=== PATIENT | male | born 1945 | race Caucasian/White ===

== ENCOUNTER → 2018-09-05 | Outpatient (CLI) | payer MEDICARE, OTHER ==
[~2018-09-05] MED LIST: ASPI81CH PO; ATOR40TA PO; CHOL10002; CHOL10002 PO; CILO50; GLIP2.5ER PO; HYDCHL12.5 PO; MELO7.5; METF500 PO; METO25ER PO; MULVIT PO; NIFE30ER PO; Toprol Xl50 MG PO; VALS80 PO; [UNRECOGNIZED DRUG - OTHER]
== END | disposition home or self-care (01) ==
LOC: LAB SHORT 08:12 → PLD 08:12
DX: L72.8 Other follicular cysts of the skin and subcutaneous tissue (principal)
CPT/HCPCS: 88304

== ENCOUNTER 2019-12-27 05:52 | Day surgery (SDC) | payer MEDICARE, BC ==
[~2019-12-27] VITALS: Ht 180.3 cm; Wt 79.0 kg
[~2019-12-27 05:52] MED LIST changes: +FINA5 PO; +Isosorbide Mono30 MG PO
[2019-12-27] MEDS ORDERED: Norco 5-325 Ta1 EACH PO (06:35)
--- NOTE | 2019-12-27 10:12 | NUR ---
DISCHARGE PT REMAINED A&OX3 AND DENIED ANY PAIN DURING RECOVERY. R RADIAL SITE CDI-NO HEMATOMA NOTED-TR BAND REMOVED -CLOTH DOT PLACED AND WHITE BAORD IN PLACE. IV DC'D WTIH CANULA IN TACT. PT UP TO DRESS SELF AND AMBULATED WITH EASE. DISCHARGE PAPERWORK GONE OVER WITH PT. PT VERBALLY STATED THE UNDERSTANDING OF THE DISCHARGE EDUCATION AND DENIED ANY QUESTIONS AT THIS TIME. PT WHEELED OUT BY THIS NURSE.
== END 2019-12-27 10:24 | disposition home or self-care (01) ==
LOC: MHTC 05:52
PROC: B201YZZ Plain Radiography of Multiple Coronary Arteries using Other Contrast (ICD-10-PCS; principal; 2019-12-27)
PROC: 4A023N7 Measurement of Cardiac Sampling and Pressure, Left Heart, Percutaneous Approach (ICD-10-PCS; principal; 2019-12-27)
DX: I25.10 Atherosclerotic heart disease of native coronary artery without angina pectoris (principal); E78.5 Hyperlipidemia, unspecified; Z87.891 Personal history of nicotine dependence; Z88.5 Allergy status to narcotic agent; E11.51 Type 2 diabetes mellitus with diabetic peripheral angiopathy without gangrene; I35.0 Nonrheumatic aortic (valve) stenosis; I11.9 Hypertensive heart disease without heart failure; Z79.82 Long term (current) use of aspirin; Z79.899 Other long term (current) drug therapy; Z79.84 Long term (current) use of oral hypoglycemic drugs
CPT/HCPCS: 76937; 93458; 99152; 99153; C1769; C1894; J0360; J1644; J2250; J3010; J7030; Q9967

== ENCOUNTER 2021-07-14 08:55 | Day surgery (SDC) | payer MEDICARE, BC ==
[~2021-07-14] VITALS: Ht 180.3 cm; Wt 71.2 kg
[~2021-07-14 08:55] MED LIST changes: +ADALAT CC PO; +CARV25 PO; +JARDIANCE25 MG PO; +LOSA50 PO; +Mobic15 MG PO; -NIFE30ER PO; +Norco 5-325 Ta1 EACH PO; +PANT40 PO
--- NOTE | 2021-07-14 14:25 | NUR ---
Patient up to Ambulate independently. Gait steady. Discharge instructions reviewed with patient. Patient verbalizes understanding. Copy given to patient to take home, ALSO WENT OVER INSTRUCTIONS WITH PT'S . Patient States Post-Procedure ride home has been arranged. Discharged via wheelchair to private car for ride home.
== END 2021-07-14 14:25 | disposition home or self-care (01) ==
LOC: ORSCMMR 08:55 → ORD 10:15 → ORSCMMR 14:25
PROVIDERS: Surgery
PROC: 0YU50JZ Supplement Right Inguinal Region with Synthetic Substitute, Open Approach (ICD-10-PCS; principal; 2021-07-14 10:15)
DX: K40.90 Unilateral inguinal hernia, without obstruction or gangrene, not specified as recurrent (principal); I10 Essential (primary) hypertension; I25.10 Atherosclerotic heart disease of native coronary artery without angina pectoris; Z87.891 Personal history of nicotine dependence; K21.9 Gastro-esophageal reflux disease without esophagitis; E11.9 Type 2 diabetes mellitus without complications; Z79.84 Long term (current) use of oral hypoglycemic drugs; Z79.82 Long term (current) use of aspirin; Z79.899 Other long term (current) drug therapy
CPT/HCPCS: 82947; C1781; J0690; J1100; J1885; J2370; J2405; J2704; J2710; J3010; J7120

== ENCOUNTER 2021-11-13 07:47 | Day surgery (SDC) | payer MEDICARE, BC ==
[~2021-11-13] VITALS: Ht 180.3 cm; Wt 71.4 kg
--- NOTE | 2021-11-13 08:54 | NUR ---
11/13/21 0854 Gabino Fuentes 0830, ZAIRA 0834, R EYE BY [email or web address].
== END 2021-11-13 09:44 | disposition home or self-care (01) ==
LOC: ORSCSDS 07:47
PROVIDERS: Ophthalmology
PROC: 08RJ3JZ Replacement of Right Lens with Synthetic Substitute, Percutaneous Approach (ICD-10-PCS; principal; 2021-11-13 09:00)
DX: H25.11 Age-related nuclear cataract, right eye (principal); E11.9 Type 2 diabetes mellitus without complications; E78.5 Hyperlipidemia, unspecified; I10 Essential (primary) hypertension; K21.9 Gastro-esophageal reflux disease without esophagitis; Z79.899 Other long term (current) drug therapy; Z79.82 Long term (current) use of aspirin; Z79.84 Long term (current) use of oral hypoglycemic drugs
CPT/HCPCS: 82947; J2001; J2250; J3010; J3301; J7040; V2632

== ENCOUNTER → 2022-12-11 | Outpatient (CLI) | payer MEDICARE, BC ==
[2022-12-12 14:08] LABS: Stool Occult Bld Immuno 1 Negative (NEGATIVE)
== END ==
LOC: LAB SHORT 13:56 → LAB 13:56
PROVIDERS: Internal Medicine
DX: D50.9 Iron deficiency anemia, unspecified (principal)
CPT/HCPCS: G0328

== ENCOUNTER → 2022-12-17 | Outpatient (CLI) | payer MEDICARE, BC ==
[2022-12-18 11:52] LABS: Stool Occult Bld Immuno 1 Negative (NEGATIVE)
== END ==
LOC: LAB SHORT 13:00 → LAB 13:00
PROVIDERS: Internal Medicine
DX: D50.9 Iron deficiency anemia, unspecified (principal)
CPT/HCPCS: G0328

== ENCOUNTER 2023-10-01 09:04 | Day surgery (SDC) | payer MEDICARE, BC ==
[~2023-10-01] VITALS: Ht 180.3 cm; Wt 67.4 kg
[2023-10-01] MEDS ORDERED: METF500C (09:24)
[2023-10-01] MEDS ORDERED: Lactated Ringer's 1,000 ML IV ONE (09:55)
[2023-10-01] MEDS ORDERED: propofoL 50 ML IV ONE (10:07)
[2023-10-01] MEDS ORDERED: Midazolam HCL 1 MG/ML 5MLVIAL ONE (10:07)
[2023-10-01] MEDS ORDERED: FentaNYL Citrate 50 MCG/ML 2 ML Injection ONE (10:07)
[2023-10-01 11:28] VITALS: BP 122/72
== END 2023-10-01 11:35 | disposition home or self-care (01) ==
LOC: ORSCSDS 09:04
PROVIDERS: Internal Medicine Gastroenterology
PROC: 0DBH8ZX Excision of Cecum, Via Natural or Artificial Opening Endoscopic, Diagnostic (ICD-10-PCS; principal; 2023-10-01 10:15)
PROC: 0DB58ZX Excision of Esophagus, Via Natural or Artificial Opening Endoscopic, Diagnostic (ICD-10-PCS; principal; 2023-10-01 10:15)
DX: D50.9 Iron deficiency anemia, unspecified (principal); K22.70 Barrett's esophagus without dysplasia; D12.0 Benign neoplasm of cecum; I10 Essential (primary) hypertension; I25.10 Atherosclerotic heart disease of native coronary artery without angina pectoris; E11.9 Type 2 diabetes mellitus without complications; Z79.899 Other long term (current) drug therapy; Z79.82 Long term (current) use of aspirin
CPT/HCPCS: 82947; 88305; J2250; J2704; J3010